=== PATIENT | male | born 1970 | race Caucasian/White ===

== ENCOUNTER → 2018-11-08 | Day surgery (SDC) | payer BC ==
[2018-11-01 09:21] LABS: BASOPHILS # (AUTO) 0.1 (0.0-0.1); EOSINOPHILS # (AUTO) 0.2 (0.0-0.4); EOSINOPHILS % 2.7 % (0.0-6.0); HEMATOCRIT 44.1 % (38.2-49.6); HEMOGLOBIN 15.6 g/dL (14.0-18.0); LYMPHOCYTES # (AUTO) 1.9 (1.0-3.2); LYMPHOCYTES % 30.4 % (18.0-39.1); MEAN CORPUSCULAR HEMOGLOBIN 29.9 pg (28-32); MEAN CORPUSCULAR HGB CONC 35.4 g/dL (31-35); MEAN CORPUSCULAR VOLUME 84.6 fL (81-99); MONOCYTES # (AUTO) 0.5 (0.2-0.8); MONOCYTES % 8.1 % (4.4-11.3); NEUTROPHILS # (AUTO) 3.6 (2.1-6.9); NEUTROPHILS % 57.5 % (38.7-80.0); PLATELET COUNT 304 x10e3/uL (140-360); RED BLOOD COUNT 5.21 x10e6/uL (4.3-5.7); RED CELL DISTRIBUTION WIDTH 12.1 % (11.7-14.4)
[2018-11-01 09:26] LABS: ANION GAP 10.4 mmol/L (8-16); BLOOD UREA NITROGEN 11 mg/dL (7-26); BUN/CREATININE RATIO 14 (6-25); CALCIUM 9.6 mg/dL (8.4-10.2); CARBON DIOXIDE 28 mmol/L (22-29); CHLORIDE 105 mmol/L (98-107); CREATININE, SERUM 0.79 mg/dL (0.72-1.25); EST GLOMERULAR FILTRATION RATE > 60 ML/MIN (60-); GLUCOSE 103 mg/dL (74-118); POTASSIUM 4.4 mmol/L (3.5-5.1); SODIUM 139 mmol/L (136-145)
[~2018-11-08] MED LIST: BUPIVACAINE 0.25%/EPI 30ML SDV INJ ONE; DEXAMETHASONE SOD PHOS INJ 4 MG/ML VIAL ONE; FENTANYL CITRATE/PF 100MCG/2 ML INJ ONE; GEMFIBROZIL600 MG PO; HYDROCODONE/APAP 7.5MG-325MG 1 EA TAB ONE; HYDROMORPHONE 2MG/ML 2 MG/ML ML ONE; KETOROLAC TROMETHAMINE 30 MG/ML VIAL ONE; LIDOCAINE HCL 1% 2 ML AMP ONE; LIDOCAINE HCL 1% 30ML-PF VIAL ONE; LIDOCAINE HCL 2% LOCAL INJ 5 ML SDV VIAL INJ ONE; MIDAZOLAM HCL 2 MG/2 ML VIAL ONE; ONDANSETRON HCL INJ 2MG/ML 2ML 2 MG/ML VIAL ONE; PROMETHAZINE HCL (IM) 25 MG/ML VIAL ONE; PROPOFOL IV EMULSION 10 MG/ML 20 ML VIAL ONE; ROCURONIUM BROMIDE 10 MG/ML 5ML VIAL ONE; SEVOFLURANE INHAL SOLN 250 ML PEN BTL ONE
--- OUTSIDE RECORDS SUMMARY | 2018-11-08 06:02 | XMS REPORT | Summary of Care ---
Author Author [facility] Organization [facility] Address Unknown Phone Unavailable Encounter MARLENI Bradley(FIN) [id number] Date(s): 10/17/17 - 10/17/17 [facility] [address], [address] [place] [address]- [phone] Discharge Disposition: Home or Self Care Attending Physician: Kimmy Vazquez MD Vital Signs Most recent to 1 oldest [Reference Range]: Height 165.1 cm (10/17/17 3:33 PM) Temperature Oral 99.3 DegF [96.4-99.1 DegF] *HI* (10/17/17 3:33 PM) Blood Pressure 116/83 mmHg [90-140/60-90 mmHg] (10/17/17 3:33 PM) Respiratory Rate 14 BRMIN [14-20 BRMIN] (10/17/17 3:33 PM) Peripheral Pulse 68 bpm Rate [60-100 bpm] (10/17/17 3:33 PM) Weight 82.841 kg (10/17/17 3:33 PM) Body Mass Index 30.39 m2 (10/17/17 3:33 PM) Problem List Condition Effective Dates Status Health Status Informant Low serum vitamin Active D(Confirmed) Foot pain(Confirmed) Active Tingling Active sensation(Confirmed) Impaired fasting Active glucose(Confirmed) Hyperlipidemia, Active mixed(Confirmed) Annual physical Active exam(Confirmed) Right inguinal Active hernia(Confirmed) Diabetes mellitus Active screening(Confirmed) Venous stasis Active dermatitis(Confirmed ) Allergies, Adverse Reactions, Alerts Substance Reaction Severity Status NKDA Active Medications No Known Medications Results No data available for this section Immunizations Given and Recorded Vaccine Date Status Refusal Reason diphtheria/pertussis, acel/tetanus adult 11/02/15 Given Procedures Procedure Date Related Diagnosis Body Site Status ORIF - Open reduction and internal fixation Completed of fracture1 1Right forearm. Social History Social History Type Response Alcohol Current, Type Beer. Frequency: 1-2 times per month. Smoking Status Former smoker; Exposure to Tobacco Smoke None; Cigarette Smoking Last 365 Days No; Reg Smoking Cessation Counseling No1 entered on: 10/17/17 1Stopped smoking about 20 years ago. Assessment and Plan No data available for this section
--- OUTSIDE RECORDS SUMMARY | 2018-11-08 06:02 | XMS REPORT | Summary of Care ---
Author Author [facility] Organization [facility] Address Unknown Phone Unavailable Encounter MARLENI Bradley(ADALID) [id number] Date(s): 12/26/17 - 12/26/17 [facility] [address] [place] [address]- [phone] Discharge Disposition: Home or Self Care Attending Physician: Kimmy Vazquez MD Vital Signs No data available for this section Problem List Condition Effective Dates Status Health Status Informant Low serum vitamin Active D(Confirmed) SOB (shortness of Active breath)(Confirmed) Foot pain(Confirmed) Active Tingling Active sensation(Confirmed) Impaired fasting Active glucose(Confirmed) Hyperlipidemia, Active mixed(Confirmed) Annual physical Active exam(Confirmed) Right inguinal Active hernia(Confirmed) Diabetes mellitus Active screening(Confirmed) Simple Active obesity(Confirmed) Venous stasis Active dermatitis(Confirmed ) Chest Active tightness(Confirmed) Allergies, Adverse Reactions, Alerts Substance Reaction Severity Status NKDA Active Medications No data available for this section Results No data available for this section [...] Reg Smoking Cessation Counseling No1 entered on: 12/26/17 1Stopped smoking about 20 years ago. Assessment and Plan No data available for this section
--- OUTSIDE RECORDS SUMMARY | 2018-11-08 06:02 | XMS REPORT | Summary of Care ---
Author Author [facility] Organization [facility] Address Unknown Phone Unavailable Encounter MARLENI Bradley(FIN) [id number] Date(s): 10/17/17 - 10/17/17 [facility] [address], [address] [place] [address]- [phone] Discharge Disposition: Home or Self Care Attending [...]
--- OUTSIDE RECORDS SUMMARY | 2018-11-08 06:02 | XMS REPORT | Continuity of Care Document ---
Author Author [facility] Interface Address Unknown Phone Unavailable Problems Problem Status Onset Date Classification Date Reported Comments Source R05 Active 04/24/[address] [facility] [address] SENT Active 04/24/2018 [facility] SOB, ASTHMA Active 04/24/2018 [facility] BACTERIAL PNEUMONIA Active 04/24/2018 [facility] R06.02 Active 12/26/2017 [facility] Low serum vitamin D Active Problem 12/29/2017 [facility] SOB (<span ID="[id number]">Confirmed</span>) Active Problem 12/29/2017 [facility] Foot pain Active Problem 12/29/2017 [facility] Tingling sensation Active Problem 12/29/2017 [facility] Impaired fasting glucose Active Problem 12/29/2017 [facility] Hyperlipidemia, mixed Active Problem 12/29/2017 [facility] Right inguinal hernia Active Problem 12/29/2017 [facility] Diabetes mellitus screening Active Problem 12/29/2017 [facility] Simple obesity Active Problem 12/29/2017 [facility] Venous stasis dermatitis Active Problem 12/29/2017 [facility] Chest tightness Active Problem 12/29/2017 [facility] UNSPECIFIED BACTERIAL PNEUMONIA Active [facility] Medications Medication Details Route Status Patient Instructions Ordering Provider Order Date Source gemfibrozil 600 mg oral tablet 600 mg=1 tab, PO, BID, # 180 tab, 1 Refill(s) Active 12/26/2017 Medical [facility] Allergies, Adverse Reactions, Alerts Substance Category Reaction Severity Reaction type Status Date Reported Comments Source Immunizations Immunization Date Given Site Status Last Updated Comments Source diphtheria/pertussis, acel/tetanus adult 11/02/2015 Right Deltoid completed [facility] Results Order Name Results Value Reference Range Date Interpretation Comments Source Chest wo contrast CT Chest wo contrast CT Study: CT CHEST WITHOUT CONTRAST Clinical Indication: Shortness of Breath - pneumonia Comparison: Chest 12/26/2017 and 04/24/2018 Technique: Axial images with sagittal and coronal reconstructions were obtained without contrast. CT imaging performed at this location utilizes radiation dose optimization techniques which include one or more of the following: -Automated exposure control -Adjustment of the mA and/or kV according to patient size -Use of iterative reconstruction technique CT Radiation Dose DLP 367.58 mGy-cm FINDINGS: Ill-defined patchy left lower lobe infiltrate is consistent with pneumonia. No other pulmonary lesion is identified. There are minor coronary artery calcifications. No gross hilar or mediastinal adenopathy is identified. No pleural or pericardial effusion is seen. Visualized portions of the upper abdomen are not remarkable. IMPRESSION: 1. Patchy left lower lobe pneumonia. 2. Minor coronary artery calcifications. SL: [id number] 04/26/2018 - - Read by: Artem Goetz MD Dictated Date/time: 04/26/18 16:28 Electronically Signed by: Artem Goetz MD 04/26/18 16:38 FINAL REPORT [facility] Chest 2 views DX Chest 2 views DX EXAM: Chest 2 views DX DATE: 04/24/2018 11:13 AM [employer] INDICATION: - R05 Cough, R06.02 Shortness of breath COMPARISON: None. IMPRESSION: Grossly normal cardiac silhouette. Nonspecific patchy left perihilar and lower lobe infiltrates. Please correlate for pneumonia. No significant pleural effusion or pneumothorax. SL: [id number] 04/24/2018 - - Read by: Rush King MD Dictated Date/time: 04/24/18 12:02 Electronically Signed by: Rush King MD 04/24/18 12:03 FINAL REPORT [facility] 2 views DX Chest 2 views DX Patient Name: JAMES DAY : 1970; Age: 47 years y/o Male MR: [id number] * CHEST, 2 views HISTORY: Dyspnea. COMPARISON: 10/13/2007. TECHNIQUE: Frontal and lateral radiographs of the chest were obtained. FINDINGS: The lungs are clear. There are no pleural effusions. The heart and pulmonary vasculature are within normal limits. The regional skeleton is unremarkable. IMPRESSION: 1. No active disease. SL: SEBASTIAN 12/26/2017 - - Read by: Matthew Salgado MD Dictated Date/time: 12/26/17 17:40 Electronically Signed by: Matthew Salgado MD 12/26/17 17:42 FINAL REPORT [facility] Vital Signs Vital Sign Value Date Comments Source Heart Rate 57 12/26/2017 [facility] BMI Calculated 30.77 12/26/2017 [facility] Weight 83.864 12/26/2017 [facility] Height 165.1 cm 12/26/2017 [facility] Temperature Oral (F) 98.0 F 12/26/2017 [facility] Respitory Rate 14 12/26/2017 [facility] Systolic (mm Hg) 130 12/26/2017 [facility] Diastolic (mm Hg) 84 12/26/2017 [facility] Weight 82.841 10/17/2017 [facility] BMI Calculated 30.39 10/17/2017 [facility] Temperature Oral (F) 99.3 F 10/17/2017 [facility] Heart Rate 68 10/17/2017 [facility] Respitory Rate 14 10/17/2017 [facility] Height 165.1 cm 10/17/2017 [facility] Systolic (mm Hg) 116 10/17/2017 [facility] Diastolic (mm Hg) 83 10/17/2017 [facility] Encounters Location Location Details Encounter Type Encounter Number Reason For Visit Attending Provider ADM Date DC Date Status Source Outpatient [id number] KAYLIE NOLASCO 07/29/2015 Active [facility] Out[facility] [id number] AURELIO CLINE 09/21/2015 Active [facility] Outpatient [id number] AURELIO CLINE 11/02/2015 Active [facility] Outpatient [id number] LUIS A VEGA 02/02/2016 Active [facility] Outpatient [id number] KAYLIE NOLASCO 05/04/2016 Active [facility] Outpatient [id number] KAYLIE NOLASCO 12/15/2016 Active [facility] Outpatient [id number] KAYLIE NOLASCO 01/11/2017 Active [facility] Outpatient [id number] KAYLIE NOLASCO 04/16/2017 Active [facility] Outpatient [id number] KAYLIE NOLASCO 10/17/2017 Active [facility] Outpatient [id number] Kaylie Engel 10/17/2017 10/18/2017 [facility] Outpatient [id number] KAYLIE NOLASCO 12/07/[address] [facility] Ambulatory Pre-Reg [id number] Kaylie Engel 12/07/2017 12/07/2017 [facility] Outpatient [id number] KAYLIE NOLASCO 12/26/2017 Active [facility] Outpatient [id number] Kaylie Engel 12/26/2017 12/27/2017 Medical [facility] Outpatient [id number] Kaylie Engel 12/26/2017 12/27/2017 [facility] Outpatient [id number] KAYLIE NOLASCO 04/22/2018 Active [facility] Outpatient [id number] KAYLIE NOLASCO 04/24/2018 Active [facility] Outpatient [id number] KAYLIE NOLASCO 04/30/2018 Active [facility] Outpatient [id number] KAYLIE NOLASCO 06/28/2018 Active [facility] Procedures Procedure Code Date Perfomer Comments Source ORIF - Open reduction and internal fixation of fracture<sup>1</sup> 20700319 Right forearm. [facility] ORIF - Open reduction and internal fixation of fracture<sup>1</sup> 20700319 Right forearm. [facility]
--- OUTSIDE RECORDS SUMMARY | 2018-11-08 06:02 | XMS REPORT | Summary of Care ---
Author Author [facility] Organization [facility] Address Unknown Phone Unavailable Encounter MARLENI Bradley(ADALID) [id number] Date(s): 12/26/17 - 12/26/17 [facility] [address], [address] [place] [address]- [phone] Discharge Disposition: Home or Self Care Attending Physician: Kimmy Vazquez MD Vital Signs Most recent to 1 oldest [Reference Range]: Height 165.1 cm (12/26/17 7:50 AM) Temperature Oral 98.0 DegF [96.4-99.1 DegF] (12/26/17 7:50 AM) Blood Pressure 130/84 mmHg [90-140/60-90 mmHg] (12/26/17 7:50 AM) Respiratory Rate 14 BRMIN [14-20 BRMIN] (12/26/17 7:50 AM) Peripheral Pulse 57 bpm Rate [60-100 bpm] *LOW* (12/26/17 7:50 AM) Weight 83.864 kg (12/26/17 7:50 AM) Body Mass Index 30.77 m2 (12/26/17 7:50 AM) Problem List Condition Effective Dates Status Health [...] Substance Reaction Severity Status NKDA Active Medications gemfibrozil 600 mg oral tablet 600 mg=1 tab, PO, BID, # 180 tab, 1 Refill(s) Start Date: 12/26/17 Status: Ordered Results No data available for this section [...]
--- OUTSIDE RECORDS SUMMARY | 2018-11-08 06:02 | XMS REPORT | Summary of Care ---
Author Author [facility] Primary Care [facility] Organization [facility] Address Unknown Phone Unavailable Encounter HQ Rock_amrit(FIN) [id number] Date(s): 12/07/17 - 12/07/17 [facility] [address], [address] [place] [address]- [phone] Attending Physician: Kimmy Vazquez MD Vital Signs [...]
[2018-11-08 13:45] VITALS: BP 125/78
--- NOTE | 2018-11-08 16:20 | Operative Report ---
DATE OF PROCEDURE: 11/08/2018 SURGEON: Denis Mendoza MD PREOPERATIVE DIAGNOSIS: Right inguinal hernia. POSTOPERATIVE DIAGNOSIS: Right direct and indirect inguinal hernia. OPERATION PERFORMED: Repair of right inguinal hernia with extended Prolene hernia system. CAKE PULLER: MARCIANO Harris. ANESTHESIA: General. COMPLICATIONS: None. ESTIMATED BLOOD LOSS: Minimal. DESCRIPTION OF PROCEDURE: With the patient lying in bed in the supine position under good general anesthesia, the abdomen was prepped with Betadine solution and draped in the usual manner. A right inguinal incision was made, it was carried down through the subcutaneous tissue down to the external oblique aponeurosis. External oblique was then opened along the length of its fibers and the external inguinal ring was opened. The cord was then mobilized and retracted. Exploration of the cord revealed the presence of indirect inguinal hernia sac, which was from the cord structures and ligated with a suture ligature of 2-0 silks and the excess was resected in the direct space. There was a complete blow out of the direct space. This was imbricated with a purse-string suture of 0 Ethibond. After this was done, the preperitoneal space was then entered right through the internal ring and a pocket was created without any difficulty. An extended Prolene hernia system was then placed in the preperitoneal space and the underlay patch was deployed without any problems. The overlay patch was then placed over the floor and split inferolaterally to allow for passage of the cord. The mesh was then sutured to the conjoined tendon and the inguinal ligament using interrupted sutures of 2-0 Vicryl. The whole area was thoroughly irrigated. Perfect hemostasis was ascertained. All layers were infiltrated on the way out with solution of 0.25% Marcaine and 1% lidocaine mixed in equal parts. The external oblique aponeurosis was then closed with a running suture 2-0 Vicryl. The subcutaneous tissue was approximated with 3-0 plain and the skin was closed with clips. A dressing was applied. The sponge, lap, and needle count was correct. The patient tolerated the procedure well and returned to the recovery room in stable condition. Denis Mendoza MD JLR/MODL /[id number]
== END | disposition home or self-care (01) ==
LOC: OR 05:58
PROVIDERS: ATTEND Surgery
DX: K40.90 Unilateral inguinal hernia, without obstruction or gangrene, not specified as recurrent (principal); E78.5 Hyperlipidemia, unspecified; K21.9 Gastro-esophageal reflux disease without esophagitis; J45.909 Unspecified asthma, uncomplicated; Z87.891 Personal history of nicotine dependence; Z01.810 Encounter for preprocedural cardiovascular examination; Z01.812 Encounter for preprocedural laboratory examination
CPT/HCPCS: 36415; 49505; 80048; 85025; 93005; C1781; J1100; J1170; J1885; J2001 ×2; J2250; J2405; J2550; J2704